=== PATIENT | male | born 1960 | race Two or more races ===

== ENCOUNTER 2016-06-04 16:51 | Emergency (ER) | payer SELFPAY ==
[~2016-06-04] VITALS: Ht 172.7 cm; Wt 76.7 kg
[2016-06-04 18:05] LABS: Urine Bilirubin Negative (Negative); Urine Blood Negative /uL (Negative); Urine Color Yellow (Yellow); Urine Glucose Normal (Normal); Urine Hyaline Cast FEW /lpf (0 - 2); Urine Ketone Negative (Negative); Urine Mucus FEW (None Seen); Urine Nitrite Negative (Negative); Urine RBC <1 /hpf (0 - 3); Urine Squamous Epithelial Cell FEW /hpf (<5); Urine Urobilinogen Normal (Negative)
[2016-06-04 18:16] LABS: Basophils # (auto) 0 uL; Basophils % (auto) 0.2 % (0.0-2.0); Eosinophils # (auto) 0.2 uL; Eosinophils % (auto) 2.1 % (0.0-7.0); Hematocrit 49.3 % (41.0-53.0); Hemoglobin 16.6 g/dL (13.5-17.5); Lymphocytes # (auto) 0.7 uL; Lymphocytes % (auto) 6.6 % (10.0-50.0); Mean Corpuscular Hemoglobin 27.9 pg (28.0-32.0); Mean Corpuscular Hgb Conc. 33.7 g/dL (32.0-36.0); Mean Corpuscular Volume 82.8 fL (80.0-100.0); Mean Platelet Volume 11.6 fL (7.4-10.4); Monocytes # (auto) 0.3 uL; Monocytes % (auto) 2.8 % (0.0-12.0); Neutrophils # (auto) 9.8 uL; Neutrophils % (auto) 88.3 % (37.0-80.0); Platelet Count (auto) 205 10^3/uL (140-450); Red Cell Distribution Width 13.1 % (11.6-16.0); SUSPECT VIEW TRANSMISSION; White Blood Cell 11.1 10^3/uL (4.4-10.8)
[2016-06-04 18:35] LABS: Albumin 4.3 g/dL (3.4-5.0); Anion Gap 7 (5-15); Aspartate Aminotransferase 17 U/L (15-37); BUN/Creatinine Ratio 15.9; Blood Urea Nitrogen 17 mg/dL (7-18); Calcium 8.6 mg/dL (8.5-10.1); Carbon Dioxide 27 mmol/L (21-32); Chloride 107 mmol/L (98-107); GFR African American 93 mL/min; GFR Non-African American 77 mL/min; Glucose 119 mg/dL (74-106); Potassium 3.8 mmol/L (3.5-5.1); Sodium 141 mmol/L (136-145)
[2016-06-04 18:40] LABS: Alkaline Phosphatase 117 U/L (45-117); Bilirubin, Total 0.9 mg/dL (0.2-1.0); Total Protein 7.9 g/dL (6.4-8.2)
[2016-06-04 20:41] LABS: Anisocytosis Slight; Platelet Estimate Adequate
[2016-06-04 20:42] LABS: Large Platelets FEW; Stomatocytes Few
[2016-06-04] MEDS ORDERED: ONDANSETRON HCL 4 MG/2 ML VIAL IV ONE (21:15)
[2016-06-04] MEDS ORDERED: MORPHINE SULF INJ 2 MG/ML SYRINGE 1ML IV ONE (21:15)
[2016-06-04] MEDS ORDERED: diphenhdrAMINE HCL 50 MG/1 ML VL ONE (21:23)
[2016-06-04] MEDS ORDERED: diphenhdrAMINE HCL 50 MG/1 ML VL IV ONE (22:00)
[2016-06-04] MEDS ORDERED: SODIUM CHLORIDE 0.9% 1,000 ML IV ONE (22:15)
[2016-06-04] MEDS ORDERED: METOCLOPRAMIDE HCL 5MG/ml INJ 2ml VIAL IV ONE (23:00)
[2016-06-05] MEDS ORDERED: MORPHINE SULF INJ 2 MG/ML SYRINGE 1ML IV ONE (00:45)
[2016-06-05 01:43] VITALS: BP 152/86
== END 2016-06-05 01:46 | disposition home or self-care (01) ==
LOC: ER 16:57
DX: N20.0 Calculus of kidney (principal); Z88.8 Allergy status to other drugs, medicaments and biological substances
CPT/HCPCS: 36415; 74176; 80053; 81001; 82962; 84484; 85025; 93005; 96361; 96374; 96375; 99285; J1200; J2270; J2405; J2765; J7030